=== PATIENT | male | born 1965 | race Caucasian/White ===

== ENCOUNTER 2025-06-25 10:54 | Emergency (ER) | payer SELFPAY ==
[2025-06-25 11:06] VITALS: BP 140/80
[2025-06-25 11:24] LABS: Hematocrit 44.4 % (39.0-52.0); Hemoglobin 14.7 g/dL (13.0-18.0); Mean Corp Hgb Conc. 33.1 g/dL (33.0-37.0); Mean Corpuscular Volume 85.9 fL (80.0-94.0); Nucleated Red Blood Cells % 0 % (-); Platelet Count 213 10^3/uL (130-400); Red Cell Dist. Width 13.1 % (11.5-14.5)
[2025-06-25 11:39] LABS: ALT (SGPT) 24 U/L (0-50); AST (SGOT) 26 U/L (17-59); Albumin 4.8 g/dl (3.5-5.0); Alkaline Phosphatase 97 U/L (38-126); Blood Urea Nitrogen 10 mg/dl (9-20); Calcium 9.5 mg/dl (8.4-10.2); Carbon Dioxide 30 mmol/L (22-30); Chloride 104 mmol/L (98-107); Glucose 97 mg/dl (70-99); Potassium 4.4 mmol/L (3.5-5.1); Sodium 139 mmol/L (135-145); Total Protein 8.3 g/dl (6.3-8.2); eGFR > 60.00
--- NOTE | 2025-06-25 12:03 | ED.GENMED ---
History of Present Illness
<Disha Patel PA-C - Last Filed: 06/26/25 12:13>
General
Chief Complaint: Dizziness
Source: patient
Exam Limitations: none
Time Seen by Provider: 06/25/25 12:02
History of Present Illness
History of Present Illness:
59yoM with a history of depression and multiple prior concussions presenting for evaluation of multiple complaints. Patient is newly homeless with known past year due to a relationship 'going south' and his father passing away. He reports episodes
of lightheadedness that have been ongoing for a while now. He was staying in a hotel last night. He remembers waking up at 1 AM to use the bathroom but does not recall getting back into bed. He woke up in the bed at 3am and noticed that his right
knee was hurting. He is unsure if he passed out but believes he injured the right knee somehow. No chest pain or shortness of breath. He also endorses suicidal ideations with plan to jump into traffic. He was in rehab about 6 months ago for
cocaine and alcohol use. Last drink was several weeks ago. He denies any history of IV drug use.
Phy Exam
<Disha Patel PA-C - Last Filed: 06/26/25 12:13>
General Physical Exam
General Presentation: well appearing and no apparent distress
General Skin: warm and dry
General Habitus: normal
General Mental: alert
ENT Exam
ENT Exam: normocephalic
Cardiovascular Exam
Cardiovascular Exam: regular rate/rhythm and no edema
Pulmonary Exam
Pulmonary Exam: lungs clear, no respiratory distress, no rales, no crackles, no rhonchi and no wheezing
Neurological Exam
Neurological Exam: alert
[place] Coma Scale
Eye Opening: Spontaneous
Verbal Response: Oriented
Motor Response: Obeys Commands
GCS Total Score: 15
Musculoskeletal Exam
Musculoskeletal Exam: other (Mild swelling to R knee. +Tenderness to inferior aspect of knee. ROM mildly decreased 2/2 pain. Able to flex to 90 degrees.)
Skin Exam
Skin Exam: normal color and warm/dry
Psychiatric Exam
Psychiatric Exam: other (+SI with plan. Cooperative during exam. No signs of psychosis. )
<Ellis Cartwright PA-C - Last Filed: 06/25/25 16:18>
Yoshi Coma Scale
GCS Total Score: 15
<Sabas Vogt DO - Last Filed: 06/25/25 22:57>
Yoshi Coma Scale
GCS Total Score: 15
Course
<Disha Patel PA-C - Last Filed: 06/26/25 12:13>
Orders/Labs/Results
Orders:
Orders
06/25/25 11:09
1:1 Observation - Suicide/ Violent Behavior As Directed
Crisis Consult Urgent
Reason for Consult: SI
06/25/25 11:10
Electrocardiogram (*1) Urgent
Reason for Study: Vertigo / Dizzy
EKG- Treatment ONCE
06/25/25 11:11
Knee, Right 4 or More Views [CR Knee- Right 4 Or More View*] Urgent
Comment:
Reason For Exam: injury
06/25/25 11:16
Complete Blood Count/With Diff Urgent
Comprehensive Metabolic Panel Urgent
TSH Urgent
Comment: ADD ON
06/25/25 12:59
Add On- LAB Urgent
Tests Added?: TSH
CT Head W/o Iv Contrast Urgent
Comment:
Reason For Exam: memory loss
06/25/25 13:22
Alcohol Urgent
Fentanyl, Urine Urgent
Troponin I Urgent
Urine Drug Abuse Screen Urgent
Date Specimen was Collected: 06/25/25
Time Specimen was Collected: 12:35
06/25/25 17:25
observation [ED Special Safety Observation] ONCE
Observation level: One to Two
Abnormal Lab Results
06/25/25 06/25/25
11:16 13:22
Abs Immat Gran (auto) 0.1 H 10^3/uL
(0-0.05)
Absolute Monos (auto) 0.7 H 10^3/uL
(0.1-0.6)
Immature Gran % 0.8 H %
(0-0.5)
Lymphocytes % 15.7 L %
(20.5-51.1)
Total Protein 8.3 H g/dl
(6.3-8.2)
TSH 0.46 L uIU/ml
(0.47-4.68)
U Benzodiazepines Scrn Positive H
(Negative)
Urine Cocaine Screen Positive H
(Negative)
06/25/25 11:16
06/25/25 11:16
Vital Signs
Initial and Last Documented VS:
Initial Vital Signs
Temp Pulse Resp BP Pulse Ox
98.5 F 99 16 140/80 99
06/25/25 11:06 06/25/25 11:06 06/25/25 11:06 06/25/25 11:06 06/25/25 11:06
Last Documented Vital Signs
Temp Pulse Resp BP Pulse Ox
98.0 F 72 18 120/81 100
06/25/25 17:24 06/25/25 23:07 06/25/25 23:07 06/25/25 17:24 06/25/25 23:07
Averylt;Ellis Cartwright PA-C - Last Filed: 06/25/25 16:18>
Orders/Labs/Results
Orders:
Orders
06/25/25 11:09
1:1 Observation - Suicide/ Violent Behavior As Directed
Crisis Consult Urgent
Reason for Consult: SI
06/25/25 11:10
Electrocardiogram (*1) Urgent
Reason for Study: Vertigo / Dizzy
EKG- Treatment ONCE
06/25/25 11:11
Knee, Right 4 or More Views [CR Knee- Right 4 Or More View*] Urgent
Comment:
Reason For Exam: injury
06/25/25 11:16
Complete Blood Count/With Diff Urgent
Comprehensive Metabolic Panel Urgent
TSH Urgent
Comment: ADD ON
06/25/25 12:59
Add On- LAB Urgent
Tests Added?: TSH
CT Head W/o Iv Contrast Urgent
Comment:
Reason For Exam: memory loss
06/25/25 13:22
Alcohol Urgent
Fentanyl, Urine Urgent
Troponin I Urgent
Urine Drug Abuse Screen Urgent
Date Specimen was Collected: 06/25/25
Time Specimen was Collected: 12:35
06/25/25 17:25
observation [ED Special Safety Observation] ONCE
Observation level: One to Two
Abnormal Lab Results
06/25/25 06/25/25
11:16 13:22
Abs Immat Gran (auto) 0.1 H 10^3/uL
(0-0.05)
Absolute Monos (auto) 0.7 H 10^3/uL
(0.1-0.6)
Immature Gran % 0.8 H %
(0-0.5)
Lymphocytes % 15.7 L %
(20.5-51.1)
Total Protein 8.3 H g/dl
(6.3-8.2)
TSH 0.46 L uIU/ml
(0.47-4.68)
U Benzodiazepines Scrn Positive H
(Negative)
Urine Cocaine Screen Positive H
(Negative)
06/25/25 11:16
06/25/25 11:16
Vital Signs
Initial and Last Documented VS:
Initial Vital Signs
Temp Pulse Resp BP Pulse Ox
98.5 F 99 16 140/80 99
06/25/25 11:06 06/25/25 11:06 06/25/25 11:06 06/25/25 11:06 06/25/25 11:06
Last Documented Vital Signs
Temp Pulse Resp BP Pulse Ox
98.0 F 72 18 120/81 100
06/25/25 17:24 06/25/25 23:07 06/25/25 23:07 06/25/25 17:24 06/25/25 23:07
<Sabas Vogt, DO - Last Filed: 06/25/25 22:57>
Orders/Labs/Results
Orders:
Orders
06/25/25 11:09
1:1 Observation - Suicide/ Violent Behavior As Directed
Crisis Consult Urgent
Reason for Consult: SI
06/25/25 11:10
Electrocardiogram (*1) Urgent
Reason for Study: Vertigo / Dizzy
EKG- Treatment ONCE
06/25/25 11:11
Knee, Right 4 or More Views [CR Knee- Right 4 Or More View*] Urgent
Comment:
Reason For Exam: injury
06/25/25 11:16
Complete Blood Count/With Diff Urgent
Comprehensive Metabolic Panel Urgent
TSH Urgent
Comment: ADD ON
06/25/25 12:59
Add On- LAB Urgent
Tests Added?: TSH
CT Head W/o Iv Contrast Urgent
Comment:
Reason For Exam: memory loss
06/25/25 13:22
Alcohol Urgent
Fentanyl, Urine Urgent
Troponin I Urgent
Urine Drug Abuse Screen Urgent
Date Specimen was Collected: 06/25/25
Time Specimen was Collected: 12:35
06/25/25 17:25
observation [ED Special Safety Observation] ONCE
Observation level: One to Two
Abnormal Lab Results
06/25/25 06/25/25
11:16 13:22
Abs Immat Gran (auto) 0.1 H 10^3/uL
(0-0.05)
Absolute Monos (auto) 0.7 H 10^3/uL
(0.1-0.6)
Immature Gran % 0.8 H %
(0-0.5)
Lymphocytes % 15.7 L %
(20.5-51.1)
Total Protein 8.3 H g/dl
(6.3-8.2)
TSH 0.46 L uIU/ml
(0.47-4.68)
U Benzodiazepines Scrn Positive H
(Negative)
Urine Cocaine Screen Positive H
(Negative)
06/25/25 11:16
06/25/25 11:16
Vital Signs
Initial and Last Documented VS:
Initial Vital Signs
Temp Pulse Resp BP Pulse Ox
98.5 F 99 16 140/80 99
06/25/25 11:06 06/25/25 11:06 06/25/25 11:06 06/25/25 11:06 06/25/25 11:06
Last Documented Vital Signs
Temp Pulse Resp BP Pulse Ox
98.0 F 72 18 120/81 100
06/25/25 17:24 06/25/25 23:07 06/25/25 23:07 06/25/25 17:24 06/25/25 23:07
Averylt;Disha Patel PA-C - Last Filed: 06/26/25 12:13>
MDM/Problems Addressed
Differential Diagnosis Includes:
59yoM here with multiple complaints. Got out of bed at 1am last night but does not remember getting back to bed but woke up at 3am with R knee pain. Also endorses SI with plan. VSS. He is awake, alert, with a GCS of 15. Exam reassuring.
Differential diagnosis includes but is not limited to: Mechanical fall, syncope, memory loss due to prior concussions, drug/alcohol use
Initial ED plan: Basic lab work and EKG obtained in triage. EKG shows normal sinus rhythm without ischemic changes or ectopy. Labs unremarkable. Will add on troponin, TSH, ETOH, UDS, and head CT. Crisis consulted.
Final assessment: Troponin undetectable. Patient evaluated by crisis team and he agrees to sign in voluntarily. Case signed out at shift change awaiting head CT. If head CT negative, patient will be medically cleared for inpatient psychiatric
treatment.
<Disha Patel PA-C - Last Filed: 06/26/25 12:13>
*Pulse Oximetry
SaO2: 99
Oxygen Mode of Delivery: Room air
Patient hypoxic: no
*EKG
Interpreted by ED Provider?: Yes
EKG Intrepretation Date: 06/25/25
Heart Rate: 77
Rate: normal
Rhythm: sinus
[place]: normal axis
Interval: normal interval
QRS Pattern: normal QRS
Ischemia: no ischemia
*Critical Care Note
Total Time (30-74mins, 75-104mins- exclusive of procedures): Not Applicable
<Ellis Cartwright PA-C - Last Filed: 06/25/25 16:18>
Update Note
Update Note:
Assumed care of patient pending CT of head. CT of head shows no acute findings. Patient is medically cleared and stable for crisis disposition
ED Attending Note
<Disha Patel PA-C - Last Filed: 06/26/25 12:13>
-
Portions of this chart may have been created with voice recognition software.� Occasional wrong word or��sound alike� substitutions may have occurred due to the inherent limitations of voice recognition software.
<Sabas Vogt DO - Last Filed: 06/25/25 22:57>
ED Attending Note
Patient seen and examined by attending physician: Yes
ED Attending Note:
I have reviewed and agree with treatment plan and history, except patient denies suicidal ideation and is cleared by telepsychiatry for discharge. My exam revealed 59-year-old male in no acute distress. Denies suicidal ideation stable for
discharge. Follow-up with primary care.
Discharge Plan
Departure
Patient Disposition: Home (Routine Discharge)
Date of Disposition: 06/25/25
Time of Disposition: 16:17
Patient with high blood pressure during this ER visit?: No
Condition: Good
Discharge Problem:
Right knee pain, Adjustment disorder
Instructions: Knee pain - ED (DC)
Prescriptions:
No Action
citalopram [Celexa] 10 mg Tablet
10 mg PO DAILY
olanzapine 10 mg Tablet
10 mg PO HS
lamotrigine [Lamictal] 25 mg Tablet
25 mg PO DAILY
Referrals:
Jong Pritchett MD [Active, Orthopedics] - Call in 1-3 days for appt
UNKNOWN - PT NOT,INTERVIEWE [Family Provider]
Activity Restrictions/Additional Instructions:
Please seek further treatment through [facility] crisis
Interventions
Interventions:
*Risk Screen - Suicide Last Done: 06/25/25 11:08
*General Assessment Last Done: 06/25/25 12:11
*Neglect/Abuse Screening Last Done: 06/25/25 11:08
*ED- Fall Risk Assessment Last Done: 06/25/25 12:11
*ED COVID-19 Vaccine History Last Done: 06/25/25 12:11
*ED Influenza Vaccine History Last Done: 06/25/25 12:11
*Nursing Disposition Last Done: 06/25/25 23:07
ED- Neurological Assessment Last Done: 06/25/25 12:11
ED- Cardiac Assessment Last Done: 06/25/25 12:11
ED Swallowing Screen Last Done: 06/25/25 12:11
Discharge Date and Time
Discharge Date/Time: 06/25/25 23:09
Print Language: KOREAN
--- NOTE | 2025-06-25 12:05 | EDRN ---
Mariano from crisis is currently at the pts bedside
[2025-06-25 12:08] VITALS: BMI 26.9
[2025-06-25 12:11] VITALS: BP 135/76
[2025-06-25 13:57] LABS: Troponin I < 0.012 ng/ml
[2025-06-25 14:36] LABS: TSH 0.46 uIU/ml (0.47-4.68)
[2025-06-25 15:43] VITALS: BP 151/78
--- NOTE | 2025-06-25 16:56 | EDRN ---
Pt's own Olanzapine 10mg po given to pt per STEFANI Cartwright.
[2025-06-25 17:24] VITALS: BP 120/81
== END 2025-06-25 23:09 | disposition home or self-care (01) ==
LOC: EMR 10:54
PROVIDERS: Emergency Medicine; Physician Assistant; EMERGENCY PHYSICIAN Emergency Medicine
DX: M25.561 Pain in right knee (principal); F43.20 Adjustment disorder, unspecified; F32.A Depression, unspecified; R45.851 Suicidal ideations; Z59.00 Homelessness unspecified; Z87.820 Personal history of traumatic brain injury
CPT/HCPCS: 99284; 70450; 73564; 80053; 80306; 80307; 82077; 84443; 84484; 85025; 93005